=== PATIENT | female | born 1975 | race Caucasian/White ===

== ENCOUNTER 2017-05-19 04:13 | Inpatient (IN) | payer OTHER ==
[~2017-05-19] VITALS: Ht 154.9 cm; Wt 102.7 kg
[2017-05-19] VITALS (18 sets, daily range): BP systolic 107–146; BP diastolic 61–90
[2017-05-19 04:41] LABS: BASOPHIL (%) 0.2 % (0-1); EOSINOPHIL (%) 0.2 % (0-5); HEMATOCRIT 45.8 % (36.0-46.0); HEMOGLOBIN 14.9 G/DL (11.9-15.5); IMMATURE GRANULOCYTE (%) 0.5 % (0.0-0.7); LYMPHOCYTE (%) 5.4 % (15-42); LYMPHOCYTE COUNT 0.6 K/uL (1.0-2.8); MCH 27.9 PG (29.0-34.0); MCHC 32.5 G/DL (30.0-36.0); MCV 85.8 FL (83-99); MONOCYTE (%) 4.9 % (3-12); MONOCYTE COUNT 0.5 K/uL (0-0.8); NEUTROPHIL (%) 88.8 % (45-76); NEUTROPHIL COUNT 9.3 K/uL (1.8-6.4); PLATELET COUNT 282 K/uL (156-360); RBC DIS.WIDTH-SD 49.5 % (39-53); RED BLOOD COUNT 5.34 M/uL (3.80-5.20); WHITE BLOOD COUNT 10.5 K/uL (4.1-10.2)
[2017-05-19 04:49] LABS: PTT 27.8 SEC (25-37)
[2017-05-19 05:01] LABS: AMYLASE 32 IU/L (1-118); CHLORIDE 104 mEq/L (99-109); POTASSIUM 3.5 mEq/L (3.7-5.4); SODIUM 136 mEq/L (136-147)
[2017-05-19 05:03] LABS: GLUCOSE 109 mg/dL (70-99)
[2017-05-19 05:06] LABS: SERUM ETHYL ALCOHOL < 10 mg/dL
[2017-05-19 05:07] LABS: CREATININE 0.8 mg/dL (0.6-1.3); GFR ESTIMATE (CALCULATED) > 59 mL/min/; UREA NITROGEN (BUN) 14 mg/dL (9-23)
[2017-05-19 05:08] LABS: TROP-I INTERPRETATION NEGATIVE; TROPONIN-I 0.16 ng/mL (0.0-0.30)
[2017-05-19 05:10] LABS: LIPASE 16 U/L (1.0-51.0)
[2017-05-19 05:16] LABS: QUANTITATIVE HCG < 4.0 MIU/ML
[2017-05-19 13:18] LABS: TROP-I INTERPRETATION POSITIVE; TROPONIN-I 8.37 ng/mL (0.0-0.30)
[2017-05-19] MEDS ORDERED: SINGULAIR10 MG PO (16:06)
[2017-05-19] MEDS ORDERED: INDERAL LA80 MG PO (16:06)
[2017-05-19] MEDS ORDERED: CYMBALTA60 MG PO (16:07)
[2017-05-19] MEDS ORDERED: BACLOFEN10 MG PO (16:07)
[2017-05-19] MEDS ORDERED: PAXIL20 MG PO (16:07)
[2017-05-19] MEDS ORDERED: ZYRTEC10 M3 PO (16:07)
[2017-05-19 18:14] LABS: TROP-I INTERPRETATION POSITIVE; TROPONIN-I 11.97 ng/mL (0.0-0.30)
[2017-05-20] VITALS (12 sets, daily range): BP systolic 95–139; BP diastolic 59–86
[2017-05-20 01:08] LABS: TROP-I INTERPRETATION POSITIVE
[2017-05-20 01:10] LABS: TROPONIN-I 14.04 ng/mL (0.0-0.30)
[2017-05-20 05:24] LABS: BASOPHIL (%) 0.4 % (0-1); EOSINOPHIL (%) 1.9 % (0-5); EOSINOPHIL COUNT 0.1 K/uL (0-0.3); HEMATOCRIT 37.9 % (36.0-46.0); IMMATURE GRANULOCYTE (%) 0.4 % (0.0-0.7); LYMPHOCYTE (%) 19.6 % (15-42); LYMPHOCYTE COUNT 1.4 K/uL (1.0-2.8); MCH 27.1 PG (29.0-34.0); MCHC 31.9 G/DL (30.0-36.0); MCV 84.8 FL (83-99); MONOCYTE (%) 6.1 % (3-12); MONOCYTE COUNT 0.4 K/uL (0-0.8); NEUTROPHIL (%) 71.6 % (45-76); PLATELET COUNT 199 K/uL (156-360); RBC DIS.WIDTH-CV 15.9 % (11.8-14.6); RBC DIS.WIDTH-SD 49.4 % (39-53); RED BLOOD COUNT 4.47 M/uL (3.80-5.20); WHITE BLOOD COUNT 6.9 K/uL (4.1-10.2)
[2017-05-20 05:46] LABS: CHLORIDE 107 MEQ/L (99-109); CREATININE 0.6 MG/DL (0.6-1.3); GFR ESTIMATE (CALCULATED) > 59 mL/min/; GLUCOSE 121 mg/dL (70-99); POTASSIUM 3.6 MEQ/L (3.7-5.4); SODIUM 136 MEQ/L (136-147); UREA NITROGEN (BUN) 6 mg/dL (9-23)
[2017-05-20 05:48] LABS: TROP-I INTERPRETATION POSITIVE; TROPONIN-I 14.05 ng/mL (0.0-0.30)
[2017-05-20 05:59] LABS: HEMOGLOBIN 12.1 G/DL (11.9-15.5)
[2017-05-20 13:06] LABS: TROP-I INTERPRETATION POSITIVE; TROPONIN-I 7.96 ng/mL (0.0-0.30)
[2017-05-20] MEDS ORDERED: ASPIR-LOW81 MG PO (14:23)
[2017-05-20] MEDS ORDERED: CARVEDILOL3.125 MG PO (14:23)
[2017-05-20] MEDS ORDERED: LOSARTAN POTASS25 MG PO (14:23)
[2017-05-20] MEDS ORDERED: NITROSTAT0.4 MG SL (14:23)
[2017-05-20] MEDS ORDERED: ATORVASTATIN CA40 MG PO (14:23)
[2017-05-20] MEDS ORDERED: BRILINTA90 MG PO (14:23)
== END 2017-05-20 16:25 | disposition home or self-care (01) | DRG 247 ==
LOC: EME 04:13 → CATH 04:55 → ENRESERV 04:57 → 4WEST 05:58 → 2SOUTH 05:58 → 4WEST 06:20
PROVIDERS: Emergency Medicine; Internal Medicine Cardiovascular Disease; Surgery
DX: I21.19 ST elevation (STEMI) myocardial infarction involving other coronary artery of inferior wall (principal); S60.211A Contusion of right wrist, initial encounter; I25.10 Atherosclerotic heart disease of native coronary artery without angina pectoris; I42.9 Cardiomyopathy, unspecified; I66.29 Occlusion and stenosis of unspecified posterior cerebral artery; G89.29 Other chronic pain; F17.200 Nicotine dependence, unspecified, uncomplicated; J45.909 Unspecified asthma, uncomplicated; Z79.82 Long term (current) use of aspirin; Z95.5 Presence of coronary angioplasty implant and graft
CPT/HCPCS: 80048; 81003; 82150; 83690; 84484; 84702; 85025; 85347; 85610; 85730; 86850; 86900; 86901; 87641; 93005; 93306; 93931; 99281; 99285; C1725; C1760; C1769; C1874; C1887; C1894; G0480; J0461; J1644; J2250; J2270; J3010

== ENCOUNTER 2017-11-13 16:30 | Emergency (ER) | payer OTHER ==
[~2017-11-13] VITALS: Ht 154.9 cm; Wt 101.9 kg
[~2017-11-13 16:30] MED LIST: ASPIR-LOW81 MG PO; ATORVASTATIN CA40 MG PO; BACLOFEN10 MG PO; BRILINTA90 MG PO; CARVEDILOL3.125 MG PO; CYMBALTA60 MG PO; INDERAL LA80 MG PO; LOSARTAN POTASS25 MG PO; NITROSTAT0.4 MG SL; PAXIL20 MG PO; SINGULAIR10 MG PO; ZYRTEC10 M3 PO
[2017-11-13 20:50] VITALS: BP 125/85
== END 2017-11-13 20:52 | disposition home or self-care (01) ==
LOC: EME 16:30
DX: F33.1 Major depressive disorder, recurrent, moderate (principal); J45.909 Unspecified asthma, uncomplicated; Z72.0 Tobacco use
CPT/HCPCS: 90839; 99281; 99283